=== PATIENT | female | born 1950 | race African-American/Black ===

== ENCOUNTER 2019-10-06 19:37 | Inpatient (IN) | payer BC ==
[~2019-10-06] VITALS: Ht 160 cm; Wt 50.8 kg
[2019-10-06] MEDS ORDERED: IPRATROPIUM BROMIDE (0.02%) 0.5MG/2.5ML NEB HHN STA (20:20)
[2019-10-06] MEDS ORDERED: ALBUTEROL (0.083%) 2.5MG/3ML NEB HHN STA (20:20)
[2019-10-06] MEDS ORDERED: ASPIRIN 81MG TABLET PO ONE (20:30)
[2019-10-06 21:00] LABS: HEMATOCRIT. 38.9 % (36.0-48.0); MEAN CORPUSCULAR HEMOGLOBIN 30.8 pg (28.0-32.0); MEAN CORPUSCULAR VOLUME 92.4 fL (81.0-99.0); MEAN PLATELET VOLUME 8.8 fl (7.4-10.4); PLATELET 184 x1000/uL (130-400); RED BLOOD CELL COUNT 4.21 mill/uL (4.2-5.4); RED CELL DISTRIBUTION WIDTH 13.4 % (11.6-14.6)
[2019-10-06 21:04] LABS: CHLORIDE 107 mEq/L (98-107)
[2019-10-06 21:35] LABS: NUCLEATED RED BLOOD CELLS 4 /100 WBC; PLATELET ESTIMATE NORMAL
[2019-10-07] MEDS ORDERED: METHYLPREDNISOLONE SOD SUCC 125 MG/2 ML VIAL IV ONE (01:15)
[2019-10-07] MEDS ORDERED: GUAIFENESIN 200MG/10ML SUGAR FREE UDC PO PRN (05:30)
[2019-10-07] MEDS ORDERED: DOCUSATE SODIUM 100MG CAPSULE PO PRN (05:30)
[2019-10-07] MEDS ORDERED: CLONIDINE 0.1MG TABLET PO PRN (05:30)
[2019-10-07] MEDS ORDERED: ACETAMINOPHEN 325MG TABLET PO PRN (05:30)
[2019-10-07] MEDS ORDERED: IPRATROPIUM/ALBUTEROL 0.5-3(2.5)MG/3ML NEB HHN PRN (05:30)
[2019-10-07] MEDS ORDERED: MAGNESIUM/ALUMINUM HYDROXIDE/SIMETHICONE 30ML UDC PO PRN (05:30)
[2019-10-07 06:15] LABS: CREATINE KINASE 54 IU/L (26-192)
[2019-10-07 06:16] LABS: CREATINE KINASE MB FRACTION < 1.0 ng/mL (0.5-3.6)
[2019-10-07] MEDS ORDERED: AZITHROMYCIN 500 MG in DEXT 5% WATER 250 ML IV SCH (08:00)
[2019-10-07] MEDS ORDERED: METHYLPREDNISOLONE SOD SUCC 125 MG/2 ML VIAL IV SCH (08:00)
[2019-10-07] MEDS ORDERED: MONT10TA26 PO (08:24)
[2019-10-07] MEDS ORDERED: PRIM50TA31 PO ×2 (08:24→20:08)
[2019-10-07] MEDS ORDERED: PROP20TA7 PO (08:24)
[2019-10-07] MEDS ORDERED: CARB1TAB5 MT (08:24)
[2019-10-07] MEDS ORDERED: ROPI4TAB22 PO (08:24)
[2019-10-07] MEDS: ENOXAPARIN 40MG/0.4ML SYR SUBCUT SCH (08:45)
[2019-10-07] MEDS: ASPIRIN 81MG EC TABLET PO SCH (08:45)
[2019-10-07] MEDS ORDERED: CEFTRIAXONE 1 G PREMIX 50 ML IV SCH (09:00)
[2019-10-07] MEDS ORDERED: CARB-32 PO (10:52)
[2019-10-07] MEDS: CARBIDOPA/LEVODOPA 25/100MG TABLET PO SCH ×2 (13:11→17:34)
[2019-10-07] MEDS: ALBUTEROL (0.083%) 2.5MG/3ML NEB HHN SCH (14:00)
[2019-10-07 15:07] LABS: CREATINE KINASE 51 IU/L (26-192)
[2019-10-07 15:08] LABS: CREATINE KINASE MB FRACTION < 1.0 ng/mL (0.5-3.6)
[2019-10-07 15:30] VITALS: BP 112/68
[2019-10-07] MEDS ORDERED: ATROV INH (16:24)
[2019-10-07 16:26] VITALS: BP 145/68
[2019-10-07] MEDS: ROPINIROLE 2 MG PO SCH (20:00)
[2019-10-07] MEDS: PRIMIDONE 50MG TABLET PO SCH (20:38)
[2019-10-07 20:53] VITALS: BP 134/99
[2019-10-07] MEDS ORDERED: PRIMIDONE 50MG TABLET PO SCH (21:00)
[2019-10-07] MEDS ORDERED: MONTELUKAST SODIUM 10MG TABLET PO SCH (21:00)
[2019-10-07] MEDS ORDERED: PROPRANOLOL HCL 10MG TABLET PO SCH (22:00)
[2019-10-07] MEDS ORDERED: IOHEXOL-350 100 ML BOTTLE ONE (22:58)
[2019-10-08 00:41] VITALS: BP 107/61
[2019-10-08 04:00] VITALS: BP 124/78
[2019-10-08 05:42] LABS: BASOPHILS % 0.9 % (0.0-2.0); EOSINOPHILS % 5.5 % (0.0-5.0); HEMATOCRIT. 40.2 % (36.0-48.0); HEMOGLOBIN. 13.7 g/dL (12.0-16.0); LYMPHOCYTES % 35.1 % (20.0-50.0); MEAN CORPUSCULAR HEMOGLOBIN 30.9 pg (28.0-32.0); MEAN CORPUSCULAR VOLUME 90.9 fL (81.0-99.0); MEAN PLATELET VOLUME 9.3 fl (7.4-10.4); NEUTROPHILS % 47.5 % (40.0-76.0); PLATELET 186 x1000/uL (130-400); RED BLOOD CELL COUNT 4.42 mill/uL (4.2-5.4); RED CELL DISTRIBUTION WIDTH 13.4 % (11.6-14.6)
[2019-10-08 05:49] LABS: CHLORIDE 107 mEq/L (98-107)
[2019-10-08 05:53] LABS: LDL CHOLESTEROL 67 mg/dL (5-100)
[2019-10-08 05:54] LABS: HDL CHOLESTEROL 107 mg/dL (40-59)
[2019-10-08 08:00] VITALS: BP 123/82
[2019-10-08] MEDS: ROPINIROLE 2 MG PO SCH (08:43)
[2019-10-08] MEDS: CARBIDOPA/LEVODOPA 25/100MG TABLET PO SCH (08:43)
[2019-10-08] MEDS: ENOXAPARIN 40MG/0.4ML SYR SUBCUT SCH (08:43)
[2019-10-08] MEDS: PRIMIDONE 50MG TABLET PO SCH (08:43)
[2019-10-08] MEDS: ASPIRIN 81MG EC TABLET PO SCH (09:00)
[2019-10-08] MEDS: ALBUTEROL (0.083%) 2.5MG/3ML NEB HHN SCH (09:10)
[2019-10-08] MEDS ORDERED: CEFTRIAXONE 1 G PREMIX 50 ML IV SCH (10:30)
[2019-10-08] MEDS ORDERED: AZITHROMYCIN 500 MG in DEXT 5% WATER 250 ML IV SCH (11:00)
[2019-10-08 11:43] VITALS: BP 123/82
[2019-10-08 12:03] VITALS: BP 106/66
[2019-10-08] MEDS ORDERED: MONTELUKAST SODIUM 10MG TABLET PO SCH (17:00)
== END 2019-10-08 12:55 | disposition home or self-care (01) | DRG 189 ==
LOC: ER 19:37 → 6WST 10-07 01:05 → ENRESERV 10-07 14:02
PROVIDERS: ADMIT Hospitalist; ATTEND Hospitalist
DX: J96.00 Acute respiratory failure, unspecified whether with hypoxia or hypercapnia (principal); J45.901 Unspecified asthma with (acute) exacerbation; J44.1 Chronic obstructive pulmonary disease with (acute) exacerbation; G20 Parkinson's disease; Z60.2 Problems related to living alone; Z87.891 Personal history of nicotine dependence; Z79.899 Other long term (current) drug therapy
CPT/HCPCS: 36415; 71045; 71275; 80053; 80061; 82550; 82553; 83880; 84484; 85025; 93005; 93306; 93970; 94640; 99285; J0456; J0696; J1650; J2930; J7060; Q9967

== ENCOUNTER 2024-04-01 12:11 | Emergency (ER) | payer BC, MEDICARE ==
[~2024-04-01] VITALS: Ht 160 cm; Wt 46.0 kg
[~2024-04-01 12:11] MED LIST: ATROV INH; BUDE6HFA INH; CARB-32 PO; MONT-39 PO; P20 PO; PRIM50TA5 PO; PROP20TA7 PO; ROPI4TAB22 PO
[2024-04-01 12:13] VITALS: BP 129/68; TEMP 96.7
[2024-04-01] MEDS ORDERED: ALBUTEROL (0.083%) 2.5MG/3ML NEB HHN STA (12:22)
[2024-04-01] MEDS ORDERED: IPRATROPIUM BROMIDE (0.02%) 0.5MG/2.5ML NEB HHN STA (12:22)
[2024-04-01 13:16] LABS: HEMATOCRIT. 38.4 % (36.0-48.0); HEMOGLOBIN. 12.4 g/dL (12.0-16.0); MEAN CORPUSCULAR HEMOGLOBIN 29.3 pg (28.0-32.0); MEAN CORPUSCULAR HGB CONC 32.4 g/dL (31.0-37.0); MEAN CORPUSCULAR VOLUME 90.5 fL (81.0-99.0); MEAN PLATELET VOLUME 8.1 fl (7.4-10.4); PLATELET 279 x1000/uL (130-400); RED BLOOD CELL COUNT 4.24 mill/uL (4.2-5.4); RED CELL DISTRIBUTION WIDTH 13.6 % (11.6-14.6); WHITE BLOOD COUNT 6.2 x1000/uL (4.5-11.0)
[2024-04-01 13:23] LABS: CHLORIDE 106 mEq/L (98-107); POTASSIUM 3.7 mEq/L (3.5-5.1); SODIUM 142 mEq/L (136-145)
[2024-04-01 13:24] LABS: CARBON DIOXIDE 32 mEq/L (21-32); DIFFERENTIAL COMMENT 1
[2024-04-01 13:25] LABS: CALCIUM 8.7 mg/dL (8.7-10.4)
[2024-04-01 13:29] LABS: CREATININE 0.7 mg/dL (0.6-1.0); GLUCOSE 114 mg/dL (70-105); UREA NITROGEN BLOOD 15 mg/dL (9-23)
[2024-04-01 13:38] LABS: TROPONIN I HIGH SENSITIVITY < 4 ng/L (3.0-34)
[2024-04-01] MEDS: ALBUTEROL (0.083%) 2.5MG/3ML NEB HHN NR (14:37)
[2024-04-01] MEDS: METHYLPREDNISOLONE SOD SUCC 125MG/2ML (ACT-O-VIAL) IV STA (14:37)
[2024-04-01 14:38] VITALS: PULSE 92; RESP 20; O2SAT 97
[2024-04-01] MEDS: IPRATROPIUM BROMIDE (0.02%) 0.5MG/2.5ML NEB HHN NR (14:38)
[2024-04-01] MEDS ORDERED: ALBU18HF2 IH (15:14)
[2024-04-01] MEDS ORDERED: P50 PO (15:14)
[2024-04-01 17:23] LABS: PLATELET ESTIMATE NORMAL
== END 2024-04-01 19:35 | disposition home or self-care (01) ==
LOC: ER 12:11
DX: J45.901 Unspecified asthma with (acute) exacerbation (principal); G20.A1 Parkinson's disease without dyskinesia, without mention of fluctuations; Z79.51 Long term (current) use of inhaled steroids; Z79.52 Long term (current) use of systemic steroids; Z79.899 Other long term (current) drug therapy
CPT/HCPCS: 99285; 96374; 71045; 80048; 85025; 84484; 36415; 94640; 93005; J2919; 96372